=== PATIENT | female | born 1940 | race Two or more races ===

== ENCOUNTER 2020-07-25 19:45 | Inpatient (IN) | payer OTHER ==
[~2020-07-25] VITALS: Ht 160 cm; Wt 61.2 kg
[2020-07-25] MEDS ORDERED: AVAPRO300 MG PO (20:12)
[2020-07-25] MEDS ORDERED: CARVEDILOL12.5 MG (20:12)
[2020-07-25] MEDS ORDERED: LIPITOR40 MG PO (20:12)
[2020-07-25] MEDS ORDERED: PLAVIX75 MG PO (20:13)
[2020-07-25] MEDS ORDERED: CARVEDILOL6.25 MG (20:13)
[2020-07-25] MEDS ORDERED: ATIVAN0.5 M1 PO (20:14)
[2020-07-25] MEDS ORDERED: RESTORIL30 M1 PO (20:14)
[2020-07-25] MEDS ORDERED: HORIZANT300 MG PO (20:15)
[2020-07-25] MEDS ORDERED: ZANAFLEX2 M1 PO (20:15)
--- NOTE | 2020-07-25 20:16 | NUR ---
SE RECIBE PACIENTE ALERTA, ORIENTADA EN TIEMPO, LUGAR Y PERSONA REFIERE TENER DOLOR ABDOMINAL, VOMITOS,DIARREA. LLEGA REFERIDA , PARA HOSPITALIZACION DIRECTA, SE ESTIMAN S/V, SE REALIZA EKG, SE UBICA EN EARLENE # 06. SE PRESENTA A .
== END 2020-07-31 18:11 | disposition home or self-care (01) | DRG 392 ==
LOC: ER 19:45 → SURH 21:32 → SEC-K 21:32 → SURH 07-26 00:33
PROVIDERS: ADMIT Colon & Rectal Surgery; ATTEND Colon & Rectal Surgery
PROC: BW2110Z Computerized Tomography (CT Scan) of Abdomen and Pelvis using Low Osmolar Contrast, Unenhanced and Enhanced (ICD-10-PCS; principal; 2020-07-25)
PROC: BW40ZZZ Ultrasonography of Abdomen (ICD-10-PCS; 2020-07-29)
PROC: 30233N1 Transfusion of Nonautologous Red Blood Cells into Peripheral Vein, Percutaneous Approach (ICD-10-PCS; 2020-07-29)
PROC: 05HY33Z Insertion of Infusion Device into Upper Vein, Percutaneous Approach (ICD-10-PCS; 2020-07-30)
DX: K57.32 Diverticulitis of large intestine without perforation or abscess without bleeding (principal); D50.8 Other iron deficiency anemias; N28.1 Cyst of kidney, acquired; N39.0 Urinary tract infection, site not specified; B96.29 Other Escherichia coli [E. coli] as the cause of diseases classified elsewhere; N17.8 Other acute kidney failure; E46 Unspecified protein-calorie malnutrition; I10 Essential (primary) hypertension; I44.7 Left bundle-branch block, unspecified; Z20.822 Contact with and (suspected) exposure to COVID-19

== ENCOUNTER 2020-10-17 15:15 | Inpatient (IN) | payer OTHER ==
[~2020-10-17] VITALS: Ht 160 cm; Wt 59.4 kg
[~2020-10-17 15:15] MED LIST: ATIVAN0.5 M1 PO; AVAPRO300 MG PO; CARVEDILOL12.5 MG; CARVEDILOL6.25 MG; HORIZANT300 MG PO; LIPITOR40 MG PO; PLAVIX75 MG PO; RESTORIL30 M1 PO; ZANAFLEX2 M1 PO
[2020-11-01] MEDS ORDERED: BUPROPION XL300 MG (08:22)
[2020-11-01] MEDS ORDERED: FAMOTIDINE40 MG (08:22)
[2020-11-01] MEDS ORDERED: ALLOPURINOL100 MG (08:22)
[2020-11-01] MEDS ORDERED: BUDESONIDE-FO10.2 G1 (08:22)
[2020-11-01] MEDS ORDERED: ONDANSETRON ODT4 MG (08:23)
[2020-11-01] MEDS ORDERED: PANTOPRAZOLE SO40 MG (08:23)
[2020-11-01] MEDS ORDERED: ATORVASTATIN CA40 MG (08:23)
[2020-11-01] MEDS ORDERED: NITROGLYCERIN0.4 MG (08:23)
[2020-11-01] MEDS ORDERED: BENEFIBER152 GM (08:24)
[2020-11-01] MEDS ORDERED: INDAPAMIDE1.25 MG (08:24)
[2020-11-01] MEDS ORDERED: MONTELUKAST SOD10 MG (08:24)
[2020-11-01] MEDS ORDERED: AZELASTIN-FLUTI23 GM (08:24)
[2020-11-01] MEDS ORDERED: GABAPENTIN300 M2 (08:24)
[2020-11-01] MEDS ORDERED: ABANEU-SL TABL1 EACH (08:24)
[2020-11-01] MEDS ORDERED: CLOTRIMAZOLE-BE15 G1 (08:25)
[2020-11-01] MEDS ORDERED: PROLIA60 MG/1 ML (08:25)
[2020-11-01] MEDS ORDERED: TRAMADOL HCL50 MG (08:25)
== END 2020-11-09 19:36 | disposition home or self-care (01) | DRG 329 ==
LOC: ADM 15:15 → EDSTATUS 10-21 09:00 → ADM 10-21 09:00 → SEC-K 10-31 12:35 → SURH 11-01 09:00 → O/R 11-01 09:09 → SURH 11-01 12:30 → SURG 11-05 10:27
PROVIDERS: Urology; ADMIT Colon & Rectal Surgery; ATTEND Colon & Rectal Surgery
PROC: 0DBU0ZZ Excision of Omentum, Open Approach (ICD-10-PCS; 2020-11-01)
PROC: 0DBB0ZZ Excision of Ileum, Open Approach (ICD-10-PCS; 2020-11-01)
PROC: 0D9 Gastrointestinal System, Drainage (ICD-10-PCS; 2020-11-01)
PROC: 0DBM0ZZ Excision of Descending Colon, Open Approach (ICD-10-PCS; 2020-11-01)
PROC: 0D1M0Z4 Bypass Descending Colon to Cutaneous, Open Approach (ICD-10-PCS; 2020-11-01)
PROC: 0WJG4ZZ Inspection of Peritoneal Cavity, Percutaneous Endoscopic Approach (ICD-10-PCS; 2020-11-01)
PROC: 0WHR8YZ Insertion of Other Device into Genitourinary Tract, Via Natural or Artificial Opening Endoscopic (ICD-10-PCS; 2020-11-01)
PROC: 0BH17EZ Insertion of Endotracheal Airway into Trachea, Via Natural or Artificial Opening (ICD-10-PCS; 2020-11-01)
PROC: 5A1945Z Respiratory Ventilation, 24-96 Consecutive Hours (ICD-10-PCS; 2020-11-01)
PROC: 4A12X4Z Monitoring of Cardiac Electrical Activity, External Approach (ICD-10-PCS; 2020-11-01)
PROC: 0DTN0ZZ Resection of Sigmoid Colon, Open Approach (ICD-10-PCS; principal; 2020-11-01 12:30)
PROC: 0WQF0ZZ Repair Abdominal Wall, Open Approach (ICD-10-PCS; 2020-11-01 12:30)
PROC: 02HV33Z Insertion of Infusion Device into Superior Vena Cava, Percutaneous Approach (ICD-10-PCS; 2020-11-04)
DX: K57.20 Diverticulitis of large intestine with perforation and abscess without bleeding (principal); J95.821 Acute postprocedural respiratory failure; N32.1 Vesicointestinal fistula; K56.51 Intestinal adhesions [bands], with partial obstruction; E87.2 Acidosis; T81.40XA Infection following a procedure, unspecified, initial encounter; T81.44XA Sepsis following a procedure, initial encounter; I10 Essential (primary) hypertension; I25.10 Atherosclerotic heart disease of native coronary artery without angina pectoris; K43.9 Ventral hernia without obstruction or gangrene; Z53.31 Laparoscopic surgical procedure converted to open procedure

== ENCOUNTER 2020-10-23 05:55 | Day surgery (SDC) | payer OTHER | END 2020-10-23 10:45 | disposition home or self-care (01) | LOC: AMB-ENDOS 05:55 | PROVIDERS: ATTEND Colon & Rectal Surgery | DX: K57.32 Diverticulitis of large intestine without perforation or abscess without bleeding (principal); K64.8 Other hemorrhoids; Z20.822 Contact with and (suspected) exposure to COVID-19; Z12.11 Encounter for screening for malignant neoplasm of colon ==

== ENCOUNTER 2020-11-19 02:37 | Inpatient (IN) | payer OTHER ==
[~2020-11-19] VITALS: Ht 157.5 cm; Wt 57.2 kg
[~2020-11-19 02:37] MED LIST changes: +ABANEU-SL TABL1 EACH; +ALLOPURINOL100 MG; +ATORVASTATIN CA40 MG; +AZELASTIN-FLUTI23 GM; +BENEFIBER152 GM; +BUDESONIDE-FO10.2 G1; +BUPROPION XL300 MG; +CLOTRIMAZOLE-BE15 G1; +FAMOTIDINE40 MG; +GABAPENTIN300 M2; +INDAPAMIDE1.25 MG; +MONTELUKAST SOD10 MG; +NITROGLYCERIN0.4 MG; +ONDANSETRON ODT4 MG; +PANTOPRAZOLE SO40 MG; +PROLIA60 MG/1 ML; +TRAMADOL HCL50 MG
--- NOTE | 2020-11-19 03:01 | NUR ---
SE RECIBE PACIENTE FEMENINA ALERTA Y ORIENTADA EN LAS NIKKI ESFERAS LA CUAL REFIERE DOLOR EN FLANCO RT Y PROBLEMAS AL ORINAR.
--- NOTE | 2020-11-19 06:03 | NUR ---
PACIENTE EVALUADA POR EL DR. SHIELDS. SE COLECTAN MUESTRAS DE MAGDY ANDREA ORDEN MEDICA Y SE ADMINISTRAN MEDICAMENTOS ORDENADOS. SE ORIENTA A PACIENTE SOBRE TRATAMIENTO. SE ESPERA POR LECTURA DE CT.
--- NOTE | 2020-11-19 07:38 | NUR ---
SE RECIBE PTE ALERTA Y ORIENTADA POR 3 EN EL AREA DE OBSERVACION EN EL CUBICULO # 11 EN EARLENE CON BARANDAS ELEVADA Y TIMBRE ACCESIBLE, PTE EN ESPERA DE REVALUACION
[2020-11-24] MEDS ORDERED: FLUCONAZOLE200 MG PO (15:12)
[2020-11-24] MEDS ORDERED: INTESTINEX680 M1 PO (15:12)
== END 2020-11-24 16:56 | disposition home or self-care (01) | DRG 690 ==
LOC: ER 02:37 → SEC-K 08:43 → SURH 11-20 14:55
PROVIDERS: ADMIT Colon & Rectal Surgery; ATTEND Colon & Rectal Surgery
PROC: BW21ZZZ Computerized Tomography (CT Scan) of Abdomen and Pelvis (ICD-10-PCS; principal; 2020-11-19)
PROC: BW2110Z Computerized Tomography (CT Scan) of Abdomen and Pelvis using Low Osmolar Contrast, Unenhanced and Enhanced (ICD-10-PCS; 2020-11-23)
DX: N39.0 Urinary tract infection, site not specified (principal); N13.39 Other hydronephrosis; Z20.822 Contact with and (suspected) exposure to COVID-19; Z93.3 Colostomy status

== ENCOUNTER 2020-12-12 17:52 | Inpatient (IN) | payer OTHER ==
[~2020-12-12] VITALS: Ht 160 cm; Wt 56.2 kg
[~2020-12-12 17:52] MED LIST changes: +FLUCONAZOLE200 MG PO; +INTESTINEX680 M1 PO
== END 2020-12-20 07:40 | disposition home or self-care (01) | DRG 920 ==
LOC: SURH 17:52
PROVIDERS: ADMIT Colon & Rectal Surgery; ATTEND Colon & Rectal Surgery
PROC: 0W9F3ZZ Drainage of Abdominal Wall, Percutaneous Approach (ICD-10-PCS; principal; 2020-12-14)
DX: K91.872 Postprocedural seroma of a digestive system organ or structure following a digestive system procedure (principal); L03.311 Cellulitis of abdominal wall; L02.211 Cutaneous abscess of abdominal wall; Y83.8 Other surgical procedures as the cause of abnormal reaction of the patient, or of later complication, without mention of misadventure at the time of the procedure; I10 Essential (primary) hypertension; I25.10 Atherosclerotic heart disease of native coronary artery without angina pectoris; Z98.61 Coronary angioplasty status

== ENCOUNTER 2021-06-06 13:45 | Inpatient (IN) | payer OTHER ==
[~2021-06-06] VITALS: Ht 160 cm; Wt 52.2 kg
[2021-06-13] MEDS ORDERED: BACLOFEN10 MG (07:55)
[2021-06-13] MEDS ORDERED: GABAPENTIN300 M2 (07:55)
== END 2021-06-26 18:04 | DRG 330 ==
LOC: ADM 13:45 → EDSTATUS 13:45 → ICU 06-13 06:10 → O/R 06-13 06:10 → SURH 06-13 07:00 → ICU 06-14 04:16 → SURG 06-18 18:36
PROVIDERS: Urology; ADMIT Colon & Rectal Surgery; ATTEND Colon & Rectal Surgery
PROC: 0JBC0ZZ Excision of Pelvic Region Subcutaneous Tissue and Fascia, Open Approach (ICD-10-PCS; 2021-06-13)
PROC: 0T788DZ Dilation of Bilateral Ureters with Intraluminal Device, Via Natural or Artificial Opening Endoscopic (ICD-10-PCS; 2021-06-13)
PROC: 0DJD8ZZ Inspection of Lower Intestinal Tract, Via Natural or Artificial Opening Endoscopic (ICD-10-PCS; 2021-06-13)
PROC: 0D1B0Z4 Bypass Ileum to Cutaneous, Open Approach (ICD-10-PCS; 2021-06-13)
PROC: 0DTN0ZZ Resection of Sigmoid Colon, Open Approach (ICD-10-PCS; principal; 2021-06-13 07:00)
PROC: 0DBP0ZZ Excision of Rectum, Open Approach (ICD-10-PCS; 2021-06-13 07:00)
PROC: 30233N1 Transfusion of Nonautologous Red Blood Cells into Peripheral Vein, Percutaneous Approach (ICD-10-PCS; 2021-06-16)
PROC: 02HV33Z Insertion of Infusion Device into Superior Vena Cava, Percutaneous Approach (ICD-10-PCS; 2021-06-17)
DX: K57.30 Diverticulosis of large intestine without perforation or abscess without bleeding (principal); N32.1 Vesicointestinal fistula; K63.2 Fistula of intestine; K68.11 Postprocedural retroperitoneal abscess; T81.49XA Infection following a procedure, other surgical site, initial encounter; E87.2 Acidosis; D62 Acute posthemorrhagic anemia; K43.2 Incisional hernia without obstruction or gangrene; Z20.822 Contact with and (suspected) exposure to COVID-19; B95.2 Enterococcus as the cause of diseases classified elsewhere

== ENCOUNTER 2021-06-11 06:23 | Day surgery (SDC) | payer OTHER | END 2021-06-11 12:15 | disposition home or self-care (01) | LOC: AMB-ENDOS 06:23 | PROVIDERS: ATTEND Colon & Rectal Surgery | DX: K57.30 Diverticulosis of large intestine without perforation or abscess without bleeding (principal); Z93.3 Colostomy status; Z88.6 Allergy status to analgesic agent; Z91.013 Allergy to seafood; L02.211 Cutaneous abscess of abdominal wall; B95.2 Enterococcus as the cause of diseases classified elsewhere ==

== ENCOUNTER 2021-07-13 15:02 | Emergency (ER) | payer OTHER ==
[~2021-07-13] VITALS: Ht 157.5 cm; Wt 54.4 kg
[~2021-07-13 15:02] MED LIST changes: +BACLOFEN10 MG
== END 2021-07-13 20:53 | disposition home or self-care (01) ==
LOC: ER 15:02
DX: R55 Syncope and collapse (principal); K57.20 Diverticulitis of large intestine with perforation and abscess without bleeding; Z20.822 Contact with and (suspected) exposure to COVID-19

== ENCOUNTER 2021-07-17 15:25 | Inpatient (IN) | payer OTHER ==
[~2021-07-17] VITALS: Ht 152.4 cm; Wt 47.6 kg
[2021-07-21] MEDS ORDERED: NYSTOP60 GM (08:05)
== END 2021-08-14 23:12 | disposition home or self-care (01) | DRG 872 ==
LOC: ER 15:25 → ICU-2 23:18 → ICU 07-19 03:07 → SURH 07-21 19:40
PROVIDERS: ADMIT Colon & Rectal Surgery; ATTEND Colon & Rectal Surgery
PROC: BW21ZZZ Computerized Tomography (CT Scan) of Abdomen and Pelvis (ICD-10-PCS; 2021-07-17)
PROC: 02HV33Z Insertion of Infusion Device into Superior Vena Cava, Percutaneous Approach (ICD-10-PCS; 2021-07-18)
PROC: 30243N1 Transfusion of Nonautologous Red Blood Cells into Central Vein, Percutaneous Approach (ICD-10-PCS; principal; 2021-07-29)
PROC: BW21Y0Z Computerized Tomography (CT Scan) of Abdomen and Pelvis using Other Contrast, Unenhanced and Enhanced (ICD-10-PCS; 2021-08-06)
PROC: 4A12X4Z Monitoring of Cardiac Electrical Activity, External Approach (ICD-10-PCS; 2021-08-09)
DX: A41.89 Other specified sepsis (principal); N17.8 Other acute kidney failure; N39.0 Urinary tract infection, site not specified; R65.20 Severe sepsis without septic shock; E87.2 Acidosis; E46 Unspecified protein-calorie malnutrition; K94.09 Other complications of colostomy; I95.89 Other hypotension; E86.0 Dehydration; D64.89 Other specified anemias; D63.8 Anemia in other chronic diseases classified elsewhere; I50.9 Heart failure, unspecified; I11.0 Hypertensive heart disease with heart failure; R53.81 Other malaise; F43.20 Adjustment disorder, unspecified; B96.89 Other specified bacterial agents as the cause of diseases classified elsewhere; B95.2 Enterococcus as the cause of diseases classified elsewhere; Z90.49 Acquired absence of other specified parts of digestive tract